=== PATIENT | female | born 1990 | race Hispanic/Latino ===

== ENCOUNTER 2019-09-09 17:17 | Emergency (ER) | payer OTHER, SELFPAY ==
[2019-09-09] MEDS ORDERED: Ketorolac Tromethamine 30 MG/ML VIAL ONE (17:58)
[2019-09-09 18:05] LABS: Bilirubin Negative (Negative); Blood, Urine Negative (Negative); Clarity Clear (Clear); Glucose, Urine (Dipstick) Normal (Negative); Leukocyte Negative Leu/uL (Negative); Nitrite Negative (Negative); Protein, Urine (Dipstick) Negative (Neg-Trace); Urobilinogen Normal mg/dL (Less than 2)
[2019-09-09 18:36] LABS: #Lymphocytes 0.7 thou/uL (1.20-3.40); #Monocytes 0.3 thou/uL (0.11-0.59); #Neutrophils 4.7 thou/uL (1.40-6.50); %Basophils 0.5 % (0.0-1.0); %Eosinophils 0.3 % (0.0-10.0); %Lymphocytes 11.4 % (21.0-51.0); %Monocytes 5.4 % (0.0-10.0); %Neutrophils 82.4 % (42.0-75.0); Hemoglobin 14.3 g/dL (12.0-16.0); Mean Corpuscular HGB CONC 34.3 g/dL (32.0-36.0); Mean Corpuscular Hemoglobin 32.8 pg (27.0-31.0); Mean Corpuscular Volume 95.7 fL (78.0-98.0); Mean Platelet Volume 8.9 fL (7.4-10.4); Platelet Count 185 thou/uL (130-400); RBC Distribution Width 11.1 % (11.5-14.5); Red Blood Cell (RBC) Count 4.35 mill/uL (4.20-5.40); White Blood Cell (WBC) Count 5.7 thou/uL (4.8-10.8)
[2019-09-09 18:57] LABS: ALT (SGPT) 30 U/L (8-55); AST (SGOT) 30 U/L (5-34); Albumin 4.1 g/dL (3.5-5.0); Alkaline Phosphatase 86 U/L (40-110); Anion Gap 11 mmol/L (10-20); BUN (Urea Nitrogen) 11 mg/dL (7.0-18.7); Bilirubin, Total 0.3 mg/dL (0.2-1.2); Calc. Creatinine Clearance 0 mL/min (70-130); Calcium 9.1 mg/dL (7.8-10.44); Carbon Dioxide 25 mmol/L (22-29); Chloride 106 mmol/L (98-107); Estimated GFR-MDRD Greater than 90; Globulin 3.5 g/dL (2.4-3.5); Glucose 97 mg/dL (70-105); Potassium 3.8 mmol/L (3.5-5.1); Protein, Total 7.6 g/dL (6.0-8.3); Sodium 138 mmol/L (136-145)
[2019-09-09 19:09] LABS: Pregnancy Test - Urine (BHCG) Negative (Negative); Pregu Control Background? CLEAR/WHITE (CLR/WHITE); Pregu Control Bar Appear? YES (CONTROL BAR); Specific Gravity 1.018 (1.002-1.036)
--- NOTE | 2019-09-09 19:11 | ULT ---
PELVIC ULTRASOUND WITH WALKER SCALE, COLOR FLOW AND SPECTRAL DOPPLER IMAGIN09/09/19 HISTORY: Lower abdominal and back pain and fever. FINDINGS: The uterus measures 9 x 4.4 x 6 cm. No focal mass or endometrial fluid. An IUD is in place. Endometri um measures 5 mm in thickness. The right ovary measures 1.8 x 3.1 x 1.7 cm and the left ovary measures 2.8 x 3.6 x 2 cm. No adnexal mass or free fluid is seen. Flow is demonstrated to both ovaries. No free fluid is noted in the cul- de-sac. IMPRESSION: IUD in place. Unremarkable exam. POS: [facility]
[2019-09-10 14:17] LABS: SARS-CoV-2 MS2 Positive; SARS-CoV-2 N Gene Negative; SARS-CoV-2 S Gene Negative; SARS-CoV-2 orf1ab Negative
[2019-09-11 22:00] LABS: Chlamydia by PCR Not Detected (NotDetected); GC by PCR Not Detected (NotDetected)
== END 2019-09-09 21:10 | disposition home or self-care (01) ==
LOC: ERS 17:17
DX: R50.9 Fever, unspecified (principal); Z20.828 Contact with and (suspected) exposure to other viral communicable diseases; N73.9 Female pelvic inflammatory disease, unspecified
CPT/HCPCS: 36415; 76856; 80053; 81003; 81025; 85025; 87491; 87591; 87635; 93976; 96372; J1885; U0003

== ENCOUNTER 2019-09-11 16:31 | Observation (INO) | payer OTHER, SELFPAY ==
[~2019-09-11 16:31] MED LIST: Iopamidol 370 76% 100 ML VIAL ONE
[2019-09-11 17:56] LABS: #Lymphocytes 0.4 thou/uL (1.20-3.40); #Monocytes 0.1 thou/uL (0.11-0.59); #Neutrophils 3.6 thou/uL (1.40-6.50); %Eosinophils 0.1 % (0.0-10.0); %Lymphocytes 9.9 % (21.0-51.0); %Monocytes 2.8 % (0.0-10.0); %Neutrophils 87.2 % (42.0-75.0); Hemoglobin 14.1 g/dL (12.0-16.0); Mean Corpuscular HGB CONC 33.2 g/dL (32.0-36.0); Mean Corpuscular Hemoglobin 31.8 pg (27.0-31.0); Mean Corpuscular Volume 95.7 fL (78.0-98.0); Mean Platelet Volume 9.2 fL (7.4-10.4); Platelet Count 114 thou/uL (130-400); RBC Distribution Width 11.3 % (11.5-14.5); Red Blood Cell (RBC) Count 4.44 mill/uL (4.20-5.40); White Blood Cell (WBC) Count 4.1 thou/uL (4.8-10.8)
[2019-09-11 18:07] LABS: ALT (SGPT) 214 U/L (8-55); AST (SGOT) 287 U/L (5-34); Albumin 3.9 g/dL (3.5-5.0); Alkaline Phosphatase 173 U/L (40-110); Anion Gap 11 mmol/L (10-20); BUN (Urea Nitrogen) 5 mg/dL (7.0-18.7); Bilirubin, Total 0.8 mg/dL (0.2-1.2); Calc. Creatinine Clearance 0 mL/min (70-130); Calcium 8.8 mg/dL (7.8-10.44); Carbon Dioxide 22 mmol/L (22-29); Chloride 106 mmol/L (98-107); Estimated GFR-MDRD Greater than 90; Globulin 3.4 g/dL (2.4-3.5); Glucose 97 mg/dL (70-105); Lipase 14 U/L (8-78); Potassium 3.7 mmol/L (3.5-5.1); Protein, Total 7.3 g/dL (6.0-8.3); Sodium 135 mmol/L (136-145)
[2019-09-11 18:11] LABS: Platelet Morphology Comment Appears Decreased; RBC Morphology Normal
[2019-09-11 18:33] LABS: BHCG - Serum Negative (NEGATIVE)
[2019-09-11 18:34] LABS: Pregs Control Background? CLEAR/WHITE (CLR/WHITE); Pregs Control Bar Appear? YES (CONTROL BAR)
[2019-09-11] MEDS ORDERED: Ondansetron PF 4 MG/2 ML Vial ONE ×2 (21:02→22:54)
[2019-09-11] MEDS ORDERED: Morphine 4 MG/ML VIAL ONE (21:02)
[2019-09-11 21:31] LABS: Bilirubin Negative (Negative); Blood, Urine Negative (Negative); Clarity Clear (Clear); Glucose, Urine (Dipstick) Normal (Negative); Leukocyte Negative Leu/uL (Negative); Nitrite Negative (Negative); Protein, Urine (Dipstick) Negative (Neg-Trace); Urobilinogen Normal mg/dL (Less than 2)
[2019-09-11 22:37] LABS: HBCM Index 0.08 S/CO (0-0.79); HBSAg Index 0.15 S/CO (0-0.99); Hep A IgM AB Non-Reactive (NonReactive); Hep A IgM S/CO 0.14 S/CO (0-0.79); Hep B Surf Ag Non-Reactive S/CO (NonReactive); Hep C IgG Ab Non-Reactive (NonReactive); Hep C Index 0.27 S/CO (0-0.79); Hepatitis B Core IgM Abs Non-Reactive (NonReactive)
[2019-09-11] MEDS ORDERED: Acetaminophen 500 MG TAB ONE (22:54)
[2019-09-11] MEDS ORDERED: cefTRIAXone\\ROCEPHIN 1 GM VIAL ONE (23:39)
[2019-09-12] MEDS ORDERED: Ondansetron PF 4 MG/2 ML Vial IVP PRN ×2 (01:59→04:29)
[2019-09-12] MEDS ORDERED: Ondansetron ODT 4 MG TAB SL PRN (01:59)
[2019-09-12] MEDS ORDERED: Acetaminophen 325 MG TAB PO PRN (01:59)
[2019-09-12] MEDS: Sodium Chloride 0.9% 1,000 ML IV SCH ×5 (02:17→21:30)
[2019-09-12] MEDS: metroNIDAZOLE 500 MG in Premix Bag 1 BAG IVPB SCH ×2 (02:17→09:43)
[2019-09-12 02:34] VITALS: BMI 31.9
--- NOTE | 2019-09-12 04:12 | PDOC.HHP ---
Hospitalist HPI - History of Present Illness Abdominal/pelvic pain History of Present Illness: Patient is a 29 year old female with PMH vaginal delivery x 1 in 2019, WPW fixed with ablation at age 15 who presents to the ED for abdominal, pelvic pain and nausea and vomiting. She reports fever to 103 at home, nausea/vomiting, body aches, chills, and abdominal/pelvic pain x about a week. She presented here for similar symptoms 2 days ago, had a pelvic exam which revealed cervical motion tenderness, was diagnosed with PID, placed on doxycycline and sent home, after a pelvic ultrasound was unremarkable. She reports she was unable to tolerate doxycycline due to vomiting and GI distress and symptoms failed to improve. She came back to ED today, pelvic exam in ED again demonstrated pelvic pain, her labs are significant for increased LFTs, abdominal imaging performed and results pending. ED discussed case with Dr Dickinson of OBGYN who requests medicine admission to rule out other causes of abdominal pain and elevated LFTs , patient admitted for further workup and care. Preliminary CT read negative for acute processes. She has a Liletta IUD, placed March of this year by her previous OBGYN Inge Mcnally in [facility]. She has moved here since then and does not have a new OBGYN. She had a child by vaginal delivery with no complications. She has history of granados parkinson white syndrome ablated at age 15. Hospitalist ROS - Review of Systems Constitutional: reports: fever, chills, sweats, weakness, malaise Eyes: denies: pain, vision change, conjunctivae inflammation, eyelid inflammation, redness, other ENT: denies: ear pain, ear discharge, nose pain, nose discharge, nose congestion , mouth pain, mouth swelling, throat pain, throat swelling, other Respiratory: denies: cough, dry, shortness of breath, hemoptysis, SOB with excertion, pleuritic pain, sputum, wheezing, other Gastrointestinal: reports: nausea, vomiting, abdominal pain Genitourinary: reports: other (pelvic pain) Musculoskeletal: denies: neck pain, shoulder pain, arm pain, back pain, hand pain, leg pain, foot pain, other Skin: denies: rash, lesions, cristel, bruising, other Neurological: denies: weakness, numbness, incoordination, change in speech, confusion, seizures, other All other systems reviewed; all pertinent +/- noted in HPI/Subj - Medication Medications: Active Medications Generic Name Dose Route Start Last Admin Trade Name Freq PRN Reason Stop Dose Admin Sodium Chloride 1,000 mls @ 125 mls/hr 09/12/19 01:59 09/12/19 02:17 Normal Saline 0.9% IV 09/12/19 13:05 1,000 mls .Q8H PANCHO Administration Metronidazole 500 mg/ Device 100 mls @ 100 mls/hr 09/12/19 03:00 09/12/19 02: 17 IVPB 09/12/19 13:05 100 mls Q8H PANCHO Administration Ondansetron HCl 4 mg 09/12/19 01:59 09/12/19 02:17 Zofran IVP 09/12/19 13:05 4 mg Q6H PRN Administration Nausea/Vomiting Hospitalist History - Past Medical History Other Medical History: wpw syndrome s/p ablation - Past Surgical History Other Surgical History: ablation vaginal delivery x 1 - Family History Other Family History: reviewed, no pertinent family history - Social History Smoking Status: Never smoker Alcohol: reports: Rare Drugs: reports: marijuana (previous) - Exam General Appearance: NAD, awake alert Eye: PERRL, anicteric sclera ENT: normocephalic atraumatic, no oropharyngeal lesions, moist mucosa Neck: supple, symmetric, no JVD, no thyromegaly, no lymphadenopathy, no carotid bruit Heart: RRR, no murmur, no gallops, no rubs, normal peripheral pulses Respiratory: CTAB, no wheezes, no rales, no ronchi, normal chest expansion, no tachypnea, normal percussion Gastrointestinal: soft, non-tender, non-distended, normal bowel sounds, no palpable masses, no hepatomegaly, no splenomegaly, no bruit Gastrointestinal - other findings: ED pelvic exam reviewed and not performed due to pt refusal of repeat Extremities: no cyanosis, no clubbing, no edema Skin: normal turgor, no lesions, no rashes Neurological: cranial nerve grossly intact, normal sensation to touch, no weakness, no focal deficits, no new deficit Musculoskeletal: normal tone, normal strength, no muscle wasting Psychiatric: normal affect, normal behavior, A&O x 3 Hospitalist Results - Labs Result Diagrams: 09/11/19 17:38 09/11/19 17:38 Lab results: WBC 4.1 thou/uL (4.8-10.8) L 09/11/19 17:38 Hgb 14.1 g/dL (12.0-16.0) 09/11/19 17:38 Hct 42.5 % (36.0-47.0) 09/11/19 17:38 MCV 95.7 fL (78.0-98.0) 09/11/19 17:38 Plt Count 114 thou/uL (130-400) L 09/11/19 17:38 Neutrophils % 87.2 % (42.0-75.0) H 09/11/19 17:38 Sodium 135 mmol/L (136-145) L 09/11/19 17:38 Potassium 3.7 mmol/L (3.5-5.1) 09/11/19 17:38 Chloride 106 mmol/L (98-107) 09/11/19 17:38 Carbon Dioxide 22 mmol/L (22-29) 09/11/19 17:38 BUN 5 mg/dL (7.0-18.7) L 09/11/19 17:38 Creatinine 0.61 mg/dL (0.6-1.1) 09/11/19 17:38 Glucose 97 mg/dL (70-105) 09/11/19 17:38 Calcium 8.8 mg/dL (7.8-10.44) 09/11/19 17:38 Total Bilirubin 0.8 mg/dL (0.2-1.2) 09/11/19 17:38 AST 287 U/L (5-34) H 09/11/19 17:38 ALT 214 U/L (8-55) H 09/11/19 17:38 Alkaline Phosphatase 173 U/L (40-110) H 09/11/19 17:38 Serum Total Protein 7.3 g/dL (6.0-8.3) 09/11/19 17:38 Albumin 3.9 g/dL (3.5-5.0) 09/11/19 17:38 Lipase 14 U/L (8-78) 09/11/19 17:38 Urine Ketones 20 mg/dL (Negative) A 09/11/19 21:19 Urine Blood Negative (Negative) 09/11/19 21:19 Urine Nitrite Negative (Negative) 09/11/19 21:19 Ur Leukocyte Esterase Negative Melany/uL (Negative) 09/11/19 21:19 Additional comment: VITAL SIGNS SunSep 12, 2019 00:03 DEVAUGHN Mir, Sparkle BP: 123/79 Pulse: 94 Resp: 16 (Non-Labored) Temp: 102.6 (Oral) O2 sat: 99 on (Room Air) Time: 09/12/2019 00:03. VITAL SIGNS SunSep 12, 2019 01:12 DEVAUGHN Farris, Michelle BP: 122/76 Pulse: 97 Resp: 16 (Non-Labored) Temp: 100.0 (Oral) Pain: 5 O2 sat: 100 on (Room Air) Time: 09/12/2019 01:12. Hospitalist H&P A/P - Plan Plan: Patient is a 29 year old female with PMH vaginal delivery x 1 in 2018, WPW fixed with ablation at age 15 who presents to the ED for abdominal, pelvic pain and nausea and vomiting. # abdominopelvic pain with sepsis # LFTs - ddx includes cholecystitis, PID, other abdominal causes however CT negative so would focus on causes that are compatible with this - follow up US abd and CT reports once complete - trend LFTs - empiric zosyn - OBGYN consutled by ED for further rule out of pelvic causes of pain as PID in differential - follow up acute hepatitis panel - IVF - follow cultures
[2019-09-12] MEDS ORDERED: hydrALAZINE 20 MG/ML VIAL SLOW IVP PRN (04:29)
[2019-09-12] MEDS ORDERED: Guaifenesin DM 100-10/5 ML UDCUP PO PRN (04:29)
[2019-09-12] MEDS ORDERED: Labetalol HCl 100 MG/20 ML VIAL SLOW IVP PRN (04:29)
[2019-09-12] MEDS ORDERED: cloNIDine 0.1 MG TAB PO PRN (04:29)
[2019-09-12] MEDS ORDERED: Promethazine HCl 12.5 MG in Sodium Chloride 0.9% 50 ML IVPB PRN (04:29)
[2019-09-12] MEDS ORDERED: HYDROcodone/Acetaminophen 5/325 mg Tablet PO PRN (04:29)
[2019-09-12] MEDS ORDERED: Morphine 2 MG/ML SYRINGE SLOW IVP PRN (04:29)
[2019-09-12] MEDS ORDERED: Senokot S 8.6-50 MG TAB PO PRN (04:30)
[2019-09-12] MEDS ORDERED: Bisacodyl 5 MG TAB PO PRN (04:30)
[2019-09-12] MEDS: Piperacillin/Tazobactam 3.375 GM in Sodium Chloride 0.9% 100 ML IVPB SCH ×3 (05:53→17:20)
--- NOTE | 2019-09-12 08:24 | ULT ---
PRELIMINARY REPORT/[facility]/EMERGENCY AFTER HOURS PROCEDURE EXAM: US Abdomen Limited, Right Upper Quadrant. CLINICAL HISTORY: RUQ pain, n/v, fever, HATCH COMPARISON: None provided. FINDINGS: LIVER: Unremarkable. GALLBLADDER: No gallstones. No wall thickening or pericholecystic fluid. Technologist reports a negative sonographic Duong sign. COMMON BILE DUCT: No biliary duct dilatation. PANCREAS: Unremarkable as visualized. RIGHT KIDNEY: No hydronephrosis. IMPRESSION: Normal study. ELECTRONICALLY SIGNED BY: Aris Giraldo MD Sep 12, 2019 1:57:58 AM CDT FINAL REPORT EMERGENT AFTER HOURS RIGHT UPPER QUADRANT ABDOMINAL ULTRASOUND: FINDINGS/IMPRESSION: I agree with the findings and impression given in the preliminary report per [facility] physici an. Unremarkable exam. POS: E[facility]
--- NOTE | 2019-09-12 09:00 | CT ---
CT ABDOMEN AND PELVIS PERFORMED WITH CONTRAST ENHANCEMENT: HISTORY: Lower abdominal pain for the past few days. Diagnosed with pelvic inflammatory disease Sunday. COMPARISON: An ultrasound study of 09/09/2019. FINDINGS: Lung bases are clear of infiltrates. The liver shows some fatty change. The spleen is within normal limits. The pancreas and gallbladder regions appear unremarkable. Right and left adrenal glands and right and left kidneys are normal in size. No renal calculi. No o bstruction. No significant periaortic or mesenteric adenopathy. CT OF PELVIS PERFORMED WITH CONTRAST ENHANCEMENT: The appendix is normal. An IUD is in place. Follicles are seen involving the adnexa. No adenopathy or mass. IMPRESSION: No acute findings of the abdomen or pelvis. Incidental findings as noted above. POS: [facility]
[2019-09-12] MEDS: Polyethylene Glycol 3350 17 GM Packet PO SCH (09:43)
[2019-09-12] MEDS: Enoxaparin Sodium 40 MG/0.4 ML SYRINGE SC SCH (09:43)
[2019-09-12] MEDS ORDERED: cefTRIAXone\\ROCEPHIN 1 GM in Sodium Chloride 0.9% 100 ML IVPB SCH (13:00)
[2019-09-12] MEDS: Acetaminophen 325 MG TAB PO PRN ×2 (15:35→21:44)
--- NOTE | 2019-09-12 18:22 | PDOC.HOSPP ---
- Subjective Encounter Date: 09/12/19 Encounter Time: 18:20 Subjective: f/u for abd pain/fever/transaminitis of unclear etiology. Receiving Zosyn/ Zofran. Feels better overall. - Objective Vital Signs & Weight: Vital Signs (12 hours) Temp Pulse Resp BP Pulse Ox 09/12/19 07:00 98.4 F 81 16 112/81 98 Weight Admit Weight 203 lb 14.841 oz Weight 203 lb 14.841 oz I&O: 09/11/19 09/12/19 09/13/19 06:59 06:59 06:59 Intake Total 940 Balance 940 Result Diagrams: 09/11/19 17:38 09/11/19 17:38 Additional Labs: Laboratory Tests 09/09/19 09/11/19 09/11/19 18:29 17:38 17:38 AST 30 287 H ALT 30 214 H Alkaline Phosphatase 86 173 H Lipase 14 Serum , Qual Negative Hepatitis A IgM Ab Hep Bs Antigen Hep B Core IgM Ab Hepatitis C Antibody 09/11/19 21:33 AST ALT Alkaline Phosphatase Lipase Serum , Qual Hepatitis A IgM Ab Non-Reactive Hep Bs Antigen Non-Reactive Hep B Core IgM Ab Non-Reactive Hepatitis C Antibody Non-Reactive Radiology Reviewed by me: Yes (ABD sono - negative; CT abd - fatty liver, no acute process) Hospitalist ROS - Medication Medications: Active Medications Generic Name Dose Route Start Last Admin Trade Name Freq PRN Reason Stop Dose Admin Acetaminophen 650 mg 09/12/19 04:29 09/12/19 15:35 Tylenol PO 650 mg Q4H PRN Administration Headache/Fever/Mild Pain (1-3) Enoxaparin Sodium 40 mg 09/12/19 09:00 09/12/19 09:43 Lovenox SC 40 mg 0900 PANCHO Administration Piperacillin Sod/Tazobactam 100 mls @ 200 mls/hr 09/12/19 06:00 09/12/19 17: 20 Sod 3.375 gm/ Sodium Chloride IVPB 100 mls Q6HR PANCHO Administration Sodium Chloride 1,000 mls @ 125 mls/hr 09/12/19 04:30 09/12/19 11:36 Normal Saline 0.9% IV 1,000 mls .Q8H PANCHO Administration Pantoprazole Sodium 40 mg 09/12/19 09:00 09/12/19 09:42 Protonix PO 40 mg DAILY PANCHO Administration Polyethylene Glycol 17 gm 09/12/19 09:00 09/12/19 09:43 Miralax PO 17 gm DAILY PANCHO Administration - Exam General Appearance: NAD, awake alert Eye: PERRL, anicteric sclera ENT: normocephalic atraumatic, no oropharyngeal lesions Neck: supple, symmetric, no JVD, no thyromegaly, no lymphadenopathy Heart: RRR, no murmur, no gallops, no rubs, normal peripheral pulses Heart - other findings: S1, S2 Respiratory: CTAB, no wheezes, no rales, no ronchi, normal chest expansion Gastrointestinal: soft, non-tender, non-distended, normal bowel sounds, no palpable masses, no guarding, no rigidity Extremities: no cyanosis, no clubbing, no edema Skin: normal turgor, no lesions Neurological: cranial nerve grossly intact, no new deficit Musculoskeletal: normal tone, normal strength, no muscle wasting Psychiatric: normal affect, A&O x 3 Hosp A/P (1) Abdominal pain Code(s): R10.9 - UNSPECIFIED ABDOMINAL PAIN Status: Acute Plan: suspect related to transaminitis, supportive mgmt, empiric Zosyn currently (2) Transaminitis Code(s): R74.0 - NONSPEC ELEV OF LEVELS OF TRANSAMNS & LACTIC ACID DEHYDRGNSE Status: Acute Plan: Hepatitis panel negative and CT and abd sono essentially negative, check [place] spot, serial LFT's (3) Febrile illness Code(s): R50.9 - FEVER, UNSPECIFIED Status: Acute Plan: ? viral etiology, COVID-19 pending, isolation protocol - Plan continue antibiotics, out of bed/ambulate, DVT proph w/SCDs Stable currently Continue empiric Zosyn Await final cx results COVID-19 pending AM lab: LFT's, CBC, [place] spot Likely home in 24h if stable
[2019-09-13] MEDS: Piperacillin/Tazobactam 3.375 GM in Sodium Chloride 0.9% 100 ML IVPB SCH ×3 (00:35→12:07)
[2019-09-13] MEDS: Sodium Chloride 0.9% 1,000 ML IV SCH ×2 (05:02→12:08)
[2019-09-13] MEDS: Acetaminophen 325 MG TAB PO PRN ×3 (05:02→14:54)
[2019-09-13 05:59] LABS: #Lymphocytes 1.8 thou/uL (1.20-3.40); #Monocytes 0.3 thou/uL (0.11-0.59); #Neutrophils 1.9 thou/uL (1.40-6.50); %Basophils 1.2 % (0.0-1.0); %Eosinophils 0.3 % (0.0-10.0); %Lymphocytes 45.2 % (21.0-51.0); %Monocytes 7.1 % (0.0-10.0); %Neutrophils 46.3 % (42.0-75.0); Hemoglobin 13.4 g/dL (12.0-16.0); Mean Corpuscular HGB CONC 34.3 g/dL (32.0-36.0); Mean Corpuscular Hemoglobin 32.9 pg (27.0-31.0); Mean Corpuscular Volume 95.9 fL (78.0-98.0); Mean Platelet Volume 9.6 fL (7.4-10.4); Platelet Count 115 thou/uL (130-400); RBC Distribution Width 11.5 % (11.5-14.5); Red Blood Cell (RBC) Count 4.07 mill/uL (4.20-5.40); White Blood Cell (WBC) Count 4.1 thou/uL (4.8-10.8)
[2019-09-13 06:10] LABS: Mononucleosis NEGATIVE (NEGATIVE)
[2019-09-13 06:11] LABS: MONO NEGATIVE CONTROL ZONE White (Negative) (White); MONO POSITIVE CONTROL Pink Line (Positive) (PINK/RED)
[2019-09-13 06:16] LABS: ALT (SGPT) 192 U/L (8-55); AST (SGOT) 174 U/L (5-34); Albumin 3.4 g/dL (3.5-5.0); Alkaline Phosphatase 140 U/L (40-110); Bilirubin, Direct 0.3 mg/dL (0.1-0.3); Bilirubin, Total 0.5 mg/dL (0.2-1.2); Magnesium 1.9 mg/dL (1.6-2.6); Protein, Total 6.4 g/dL (6.0-8.3)
--- NOTE | 2019-09-13 08:34 | PDOC.HOSPP ---
- Subjective Encounter Date: 09/13/19 Encounter Time: 10:50 Subjective: Patient reports resolution of her abdominal pain. No more fever. No nausea/ vomiting. Ready to go home. - Objective Vital Signs & Weight: Vital Signs (12 hours) Temp Pulse Resp BP BP Pulse Ox 09/13/19 04:42 98.8 F 70 18 107/67 100 09/12/19 21:24 98.7 F 73 18 111/74 111/74 97 Weight Admit Weight 203 lb 14.841 oz Weight 203 lb 14.841 oz I&O: 09/12/19 09/13/19 09/14/19 06:59 06:59 06:59 Intake Total 940 2400 Balance 940 2400 Result Diagrams: 09/13/19 05:35 09/11/19 17:38 Hospitalist ROS - Review of Systems Constitutional: denies: fever, chills Respiratory: denies: cough, shortness of breath Cardiovascular: denies: chest pain, palpitations, orthopnea Gastrointestinal: denies: nausea, vomiting, abdominal pain, diarrhea, constipation Genitourinary: denies: dysuria - Medication Medications: Active Medications Generic Name Dose Route Start Last Admin Trade Name Freq PRN Reason Stop Dose Admin Acetaminophen 650 mg 09/12/19 04:29 09/13/19 05:02 Tylenol PO 650 mg Q4H PRN Administration Headache/Fever/Mild Pain (1-3) Enoxaparin Sodium 40 mg 09/12/19 09:00 09/12/19 09:43 Lovenox SC 40 mg 0900 PANCHO Administration Piperacillin Sod/Tazobactam 100 mls @ 200 mls/hr 09/12/19 06:00 09/13/19 04: 46 Sod 3.375 gm/ Sodium Chloride IVPB 100 mls Q6HR PANCHO Administration Sodium Chloride 1,000 mls @ 125 mls/hr 09/12/19 04:30 09/13/19 05:02 Normal Saline 0.9% IV Not Given .Q8H PANCHO Pantoprazole Sodium 40 mg 09/12/19 09:00 09/12/19 09:42 Protonix PO 40 mg DAILY PANCHO Administration Polyethylene Glycol 17 gm 09/12/19 09:00 09/12/19 09:43 Miralax PO 17 gm DAILY PANCHO Administration - Exam General Appearance: NAD, awake alert ENT: moist mucosa Heart: RRR, no murmur, no gallops, no rubs Respiratory: CTAB, no wheezes, no rales, no ronchi Gastrointestinal: soft, non-tender, non-distended, normal bowel sounds Psychiatric: normal affect, normal behavior, A&O x 3 Hosp A/P (1) Abdominal pain Code(s): R10.9 - UNSPECIFIED ABDOMINAL PAIN Status: Resolved (2) Febrile illness Code(s): R50.9 - FEVER, UNSPECIFIED Status: Resolved (3) Transaminitis Code(s): R74.0 - NONSPEC ELEV OF LEVELS OF TRANSAMNS & LACTIC ACID DEHYDRGNSE Status: Acute - Plan continue antibiotics, out of bed/ambulate, DVT proph w/SCDs Stable currently On empiric Zosyn- can transition to oral antibiotics cervical cultures negative COVID-19 pending Monospot negative AM lab: LFT's, CBC Suspect that her infection is viral, not [place]. If Covid-19 negative and Sanitation Laborer doesn't think this is PID can d/c home
--- NOTE | 2019-09-13 09:24 | CON ---
DATE OF CONSULTATION: 09/12/2019 HISTORY OF PRESENT ILLNESS: The patient is a 29-year-old female, who was admitted to the hospital yesterday morning for fever, abdominal pain, and pelvic pain with an initial diagnosis of PID by the ER physician versus other etiology. The hospitalist group managing Ms. Woody, consulted [employer] for further evaluation. In our conversation yesterday, the patient reports that she has had fevers and upper abdominal pain and sharp stabbing intermittent lower pelvic pains since about Sunday when she came into the ER for evaluation. At that time, she was given doxycycline for presumed PID and sent home. She has had since that time her symptoms had worsened and re-presented to the emergency room. The patient reports her temperature has gotten as high as 103. She denies any sick contacts. She denies any intercourse for the last year. She had an IUD placed about 5 months ago as a control method. Again, however, reiterated she has not had intercourse for over a year and delivered a baby about 7 months ago. The patient denies a change in discharge other than some clear liquid. She denies any odor or purulent discharge or bleeding. Again, she reports fever. She reports headache. She reports nausea and vomiting. She denies chest pain or shortness of breath. She denies constipation or diarrhea. She denies any new rashes, hip problems, knee problems, or muscle weakness. PAST MEDICAL HISTORY: She has a history of Pdmdi-Vngnixack-Kxuda syndrome and status post ablation at 15. PAST SURGICAL HISTORY: Negative. ALLERGIES: NO KNOWN DRUG ALLERGIES. SOCIAL HISTORY: Denies drug, alcohol, or tobacco use. MEDICATIONS: At time of my evaluation, the patient has been on metronidazole and Zosyn, Zofran for nausea and vomiting, Lovenox, hydrocodone, ipratropium. OB HISTORY: She has had one vaginal delivery. REVIEW OF SYSTEMS: Per HPI. PHYSICAL EXAMINATION: VITAL SIGNS: Blood pressure 111/74, temperature 98.7, pulse of 73, respiratory rate of 18, and saturating 97% on room air. GENERAL: She appears to be in no acute distress. She is alert, oriented, cooperative, and pleasant to interact with. HEAD: Normocephalic and atraumatic. ABDOMEN: Soft. She does have some upper right quadrant abdominal pain. Positive Duong sign. She has some lower pelvic pain on palpation, but has no guarding or rebound or peritoneal signs. EXTREMITIES: Nontender and nonedematous. LABORATORY DATA: COVID testing is pending. She did have a negative test on the . White count 4.1, hemoglobin 14.1, hematocrit 42.5, platelets 214,000. Sodium 135, potassium 3.7, chloride 106, anion gap 11, BUN 5, creatinine 0.61, glucose of 97. AST of 287, ALT of 214, alkaline phosphatase of 173, and lipase of 14. test negative. Hepatitis panel is negative. Monospot screen is negative. CT scan shows no evidence of any acute changes in the pelvis or abdomen. No fat stranding or lymphadenopathy in the pelvis. Appendix looks normal. There are some fatty changes to the liver. Ultrasound showed unremarkable gallbladder, the pancreas, right kidney, common bile duct, and liver. ASSESSMENT AND PLAN: The patient is a 29-year-old female, who was admitted with fever, nausea, vomiting and started on Zosyn and Flagyl for presumed pelvic inflammatory disease versus other infectious etiology, though PID is a possibility. The probability is extremely low given the fact that she has not been sexually active for a year that she has an IUD in place and has a depressed, not elevated white count. It is absent of any CT findings consistent with a pelvic infection such as fat stranding or lymphadenopathy or abscesses. The empiric treatment with Zosyn and Flagyl would be appropriate treatment for PID. There would be no need to remove her IUD at this time, but we would recommend looking for more likely etiologies to explain her constellation of symptoms. Some viral syndrome is possible given her depressed white count and high fevers. LFTs could be explained with the description of her intense vomiting as well as some infectious etiology. I will be signing off at this time. If she does remain on treatment for PID, we would recommend after 48 to 72 hours of IV antibiotics would be to go home with medications such as doxycycline and Flagyl for 10 days, but again would evaluate for other causes with this being on the lower end of probability. Job ID: [id number]
[2019-09-13] MEDS: Enoxaparin Sodium 40 MG/0.4 ML SYRINGE SC SCH (09:28)
[2019-09-13] MEDS: Polyethylene Glycol 3350 17 GM Packet PO SCH (09:28)
[2019-09-13 13:15] LABS: SARS-CoV-2 MS2 Positive; SARS-CoV-2 N Gene Negative; SARS-CoV-2 S Gene Negative; SARS-CoV-2 orf1ab Negative
[2019-09-13 15:49] VITALS: BP 120/81; TEMP 98.2
--- NOTE | 2019-09-14 08:22 | DIS ---
DATE OF ADMISSION: 09/12/2019 DATE OF DISCHARGE: 09/13/2019 PRIMARY CARE PHYSICIAN: Luanne Grijalva. REASON FOR ADMISSION: Fever and abdominal pain. DIAGNOSES AT DISCHARGE: 1. Abdominal pain, resolved. 2. Fever, resolved, likely viral illness. 3. Transaminitis, improving. PROCEDURES: 1. CT of the abdomen and pelvis with IV contrast showing no acute findings, no evidence for pelvic inflammatory disease, appendicitis, or other significant abnormalities. 2. Ultrasound of the abdomen showing normal liver, normal gallbladder without gallstones and no wall thickening. No sonographic Duong sign. Normal bile duct, normal pancreas, normal kidney, normal ultrasound. CONSULTATIONS: Gynecology, Dr. Sherman. SUMMARY OF HOSPITAL COURSE: This is a 29-year-old female, who came in with a week of abdominal pain, nausea, vomiting. Had been seen and diagnosed with PID earlier in the week and sent home with doxycycline. She had a fever up to 103 and came into the emergency room. In the ER, she was reported unable to tolerate her oral antibiotics due to vomiting. She was put in observation in the hospital and was put on IV Zosyn. Dr. Sherman was consulted for presence of an IUD and possibility of PID. He did evaluate the patient and determined that she did not have PID due to no increased white count, no changes in CT or her previous pelvic ultrasound, and no tenderness on exam today. He did recommend looking for other source of the infection and if no other sources were found to give her 10 days of doxycycline and metronidazole when she was discharged. The patient had complete resolution of her pain during hospitalization. She did have some elevated transaminitis on her blood work. This improved the 2nd hospital day, and she was doing well and eager to go home. She had evidence on her white count of viral infection. A Monospot was done, which was negative. She also had a COVID test done, which was negative. She had no further fevers in the hospital, so she is being discharged home. DISCHARGE MANAGEMENT: Discharged home. FOLLOWUP: Follow up with primary care provider in 1 to 2 weeks to recheck liver function tests. ACTIVITY: As tolerated. DIET: Regular diet. MEDICATIONS: 1. Doxycycline 100 mg twice a day, 20 caps dispensed. 2. Metronidazole 500 mg 3 times a day, 30 tabs dispensed. 3. Ondansetron 4 mg q.6 hours as needed for nausea or vomiting, 15 tabs dispensed. Job ID: [id number]
[2019-09-15 15:28] LABS: Chlamydia by PCR Not Detected (NotDetected); GC by PCR Not Detected (NotDetected)
== END 2019-09-13 16:17 | disposition home or self-care (01) ==
LOC: ERS 16:31 → ONC 09-12 01:14 → T4-A 09-12 08:56
PROVIDERS: ADMIT Internal Medicine; ATTEND Internal Medicine
DX: A41.9 Sepsis, unspecified organism (principal); R10.2 Pelvic and perineal pain; R50.9 Fever, unspecified; R74.0 Nonspecific elevation of levels of transaminase and lactic acid dehydrogenase [LDH]; R11.2 Nausea with vomiting, unspecified; N73.9 Female pelvic inflammatory disease, unspecified; F12.11 Cannabis abuse, in remission; Z20.828 Contact with and (suspected) exposure to other viral communicable diseases; Z79.2 Long term (current) use of antibiotics; Z97.5 Presence of (intrauterine) contraceptive device
CPT/HCPCS: 36415; 74177; 76705; 80053; 80074; 80076; 81003; 83690; 83735; 84703; 85025; 86308; 87480; 87491; 87510; 87591; 87635; 87660; 96361; 96365; 96366; 96367; 96372; 96375; 96376; G0378; J0696; J1650; J2270; J2405; J2543; J3490; Q9967; U0003